=== PATIENT | male | born 1935 | race Caucasian/White ===

== ENCOUNTER → 2017-08-16 | Outpatient (CLI) | payer OTHER, MEDICARE | LOC: ULTRA 08:51 | DX: K80.20 Calculus of gallbladder without cholecystitis without obstruction (principal); N28.1 Cyst of kidney, acquired ==

== ENCOUNTER 2018-06-17 09:01 | Inpatient (IN) | payer OTHER, MEDICARE ==
[~2018-06-17] VITALS: Ht 182.9 cm; Wt 81.6 kg
[2018-06-17 09:22] VITALS: BP 150/76
[2018-06-17] MEDS ORDERED: MYRBETRIQ25 MG PO (09:34)
[2018-06-17] MEDS ORDERED: SINEMET 25-1001 EAC1 PO (09:34)
[2018-06-17] MEDS ORDERED: LISINOPRIL20 MG PO (09:35)
[2018-06-17] MEDS ORDERED: ACYCLOVIR 400400 MG PO (09:35)
[2018-06-17] MEDS ORDERED: GABAPENTIN600 M1 PO (09:37)
[2018-06-17 12:58] LABS: URINE BILIRUBIN NEGATIVE (Negative); URINE BLOOD TRACE (Negative); URINE CLARITY CLEAR; URINE COLOR YELLOW; URINE GLUCOSE-RANDOM* NEGATIVE (Negative); URINE KETONES NEGATIVE (Negative); URINE LEUKOCYTES NEGATIVE (Negative); URINE NITRITE NEGATIVE (Negative); URINE PROTEIN (DIPSTICK) NEGATIVE (Negative); URINE UROBILINOGEN 0.2 E.U./dl (0.2-1.0)
[2018-06-17 13:03] LABS: ABSOLUTE NEUTROPHILS 4.9 thou/uL (1.4-8.2); BASOPHILS 1.1 % (0.0-2.0); EOSINOPHILS 0.3 % (0.0-3.0); HEMATOCRIT 41.9 % (42.0-52.0); HEMOGLOBIN 14.2 gm/dL (14.0-18.0); LYMPHOCYTES 17.7 % (24.0-44.0); MCH 30.7 pg (26.0-34.0); MCHC 33.9 g/dL (28.0-37.0); MCV 90.7 fL (80.0-100.0); MONOCYTES 5.8 % (1.0-8.0); PLATELET COUNT 207 thou/uL (150-400); POLYS 75.1 % (36.0-66.0); RBC 4.62 mil/uL (4.50-6.00); RDW 14.8 % (10.5-14.5); WBC 6.6 thou/uL (4.0-11.0)
[2018-06-17 13:13] LABS: CALCIUM 9.4 mg/dL (8.5-10.1); CREATININE 0.9 mg/dL (0.7-1.3); POTASSIUM 3.9 mmol/L (3.5-5.1)
[2018-06-17 15:03] VITALS: BP 190/82
[2018-06-17 15:57] VITALS: BP 190/82
[2018-06-17 16:00] VITALS: BP 176/83
--- NOTE | 2018-06-17 18:24 | NUR ---
ADMISSION ASSESMENT COMPLETED. BP ELEVATED OTHERWISE STABLE. DENIES PAIN. NO NOTED SOA. NO NV. PT RESTING IN BED. FALL PREC. IN PLACE. BANDAGE ON LEFT KNEE LEFT HAND AND HEAD. NO CONCERNS VOICED AT THIS TIME. WILL CONT. TO MONITOR.
[2018-06-17 19:55] VITALS: BP 137/68
[2018-06-18 03:45] VITALS: BP 151/72
--- NOTE | 2018-06-18 04:56 | NUR ---
PT LYING IN BED. VOIDING PER URINAL. DENIES NEED FOR PAIN MEDICICATION. RESTING COMFORTABLY. NO NEEDS VOICED. CALL LIGHT WITHIN REACH. WILL CONTINUE TO PROVIDE FREQUENT OBSERVATION.
[2018-06-18 07:31] VITALS: BP 156/82
--- NOTE | 2018-06-18 08:14 | NUR ---
ASSESMENT COMPLETED. VSS. A/O. DENIES PAIN. NO NOTED SOA. NO NV. PT RESTING IN BED. DRESSINGS INTACT. PT ANTICIPATING TO DC HOME TODAY. WILL CONT. TO MONITOR.
[2018-06-18 11:52] VITALS: BP 156/82
--- NOTE | 2018-06-18 12:48 | NUR ---
DC INSTRUCTIONS GIVEN TO PT. PT VERBALIZED UNDERSTANDING. PT DCD HOME WITH SELF CARE./
--- NOTE | 2018-06-18 13:30 | EKG ---
[place] [address] [address] [facility] [place] [address] ELECTROCARDIOGRAM REPORT Name: MALLORY COOLEY Room #: 428-P 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 : 1935 Requested By: Beverly Chowdhury Order Number: [id number] MD: Osmani Royal Measurements Intervals [place] Rate: 76 P: -17 NE: 222 QRS: -12 QRSD: 102 T: 12 QT: 443 QTc: 499 Interpretive Statements Sinus rhythm Frequent supraventricular complexes Prolonged NE interval Borderline T abnormalities, anterior leads No previous ECG available for comparison Electronically Signed On 06-18-2018 13:30:44 CDT by Osmani Royal [email or web address] ��������������������������������������������� <ELECTRONICALLY SIGNED> ���������������������������������������� By: Osmani Royal MD, [facility] ��������������������������������������������� 06/18/18 1330 7 Osmani Royal MD, [facility] /EPI
== END 2018-06-18 12:45 | disposition home or self-care (01) | DRG 605 ==
LOC: ER 09:01 → EROBS 13:28 → 4E 15:35
PROVIDERS: Student in an Organized Health Care Education/Training Program; ADMIT Family Medicine
PROC: 0HQ0XZZ Repair Scalp Skin, External Approach (ICD-10-PCS; principal; 2018-06-17)
DX: S01.91XA Laceration without foreign body of unspecified part of head, initial encounter (principal); I10 Essential (primary) hypertension; G62.9 Polyneuropathy, unspecified; S61.411A Laceration without foreign body of right hand, initial encounter; S81.012A Laceration without foreign body, left knee, initial encounter; S51.812A Laceration without foreign body of left forearm, initial encounter; S80.12XA Contusion of left lower leg, initial encounter; W18.39XA Other fall on same level, initial encounter; Y93.89 Activity, other specified; Y92.89 Other specified places as the place of occurrence of the external cause; Y99.8 Other external cause status; Z23 Encounter for immunization; Z79.899 Other long term (current) drug therapy
CPT/HCPCS: 10183

== ENCOUNTER 2019-08-10 08:43 | Emergency (ER) | payer OTHER, MEDICARE ==
[~2019-08-10] VITALS: Ht 185.4 cm; Wt 89.8 kg
[~2019-08-10 08:43] MED LIST: ACYCLOVIR 400400 MG PO; GABAPENTIN600 M1 PO; LISINOPRIL20 MG PO; MYRBETRIQ25 MG PO; SINEMET 25-1001 EAC1 PO
[2019-08-10] MEDS ORDERED: TRAMADOL 50 MG50 MG PO (09:52)
[2019-08-10] MEDS ORDERED: MOBIC7.5 MG PO (09:52)
[2019-08-10 10:18] VITALS: BP 175/85
--- NOTE | 2019-08-11 11:49 | EKG ---
[facility] [place] [address] ELECTROCARDIOGRAM REPORT Name: MALLORY COOLEY [id number] Admission: 08/10/19 Attend Phys: Discharge: 08/10/19 Date of : 35 Report #: [id number] THIS REPORT FOR: cc: David Stout MD, Neal A. MD Couchonnal, Luis F. MD ~ THIS REPORT FOR: //name// 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1935 Requested By: Lan Granados Order Number: [id number] MD: Taiwo Moore Measurements Intervals [place] Rate: 76 P: 17 IN: 230 QRS: -34 QRSD: 106 T: 16 QT: 420 QTc: 473 Interpretive Statements Sinus rhythm Prolonged IN interval Left axis deviation Borderline repolarization abnormality Compared to ECG 06/17/2018 09:08:10 Left-axis deviation now present T-wave abnormality no longer present Electronically Signed On 08-11-2019 11:49:03 CDT by Taiwo Moore [email or web address] <ELECTRONICALLY SIGNED> By: Taiwo Moore MD 08/11/19 1149 0911 Taiwo Moore MD /EPI
== END 2019-08-10 11:07 | disposition home or self-care (01) ==
LOC: ER 08:43
DX: M75.52 Bursitis of left shoulder (principal); M13.812 Other specified arthritis, left shoulder; I10 Essential (primary) hypertension; G62.9 Polyneuropathy, unspecified; Z21 Asymptomatic human immunodeficiency virus [HIV] infection status; Z79.899 Other long term (current) drug therapy; Z87.891 Personal history of nicotine dependence

== ENCOUNTER 2019-08-18 11:30 | Inpatient (IN) | payer OTHER, MEDICARE ==
[~2019-08-18] VITALS: Ht 180.3 cm; Wt 86.2 kg
--- NOTE | ~2019-08-18 | EMS ---
[address] [address] EMS Patient Care Report Name: MALLORY COOLEY Room #: 445-P [facility] IN M.R.#: [id number] Admission: 08/18/19 Attend Phys: José Alan MD Discharge: Date of : 35 Report #: [id number] THIS REPORT FOR: //name// Report Transmitted: 08/18/2019 17:[address] [facility] MED-ACT Incident [id number] @ 08/18/2019 10:54 Incident Location [address] [place] [address] Patient MLALORY COOLEY Male, 84 Years 1935 Patient Address [address] [place] [address] Patient History Hypertension (HTN),Hyperlipidemia,Human Immunodeficiency Virus Disease (HIV/AIDS),Back Pain (Chronic),Back Surgery, Patient Allergies No known allergies, Patient Medications Acyclovir, Gabapentin, Lisinopril, Myrbetriq, Atorvastatin, Chief Complaint FALL Disposition Transported No Lights/[place] Reason Falls Transported To [facility] Narrative Upon arrival to the patient, the patient appeared to have no immediate life [address] [address] EMS Patient Care Report Name: MALLORY COOLEY Room #: 445-P ADM IN M.R.#: [id number] Admission: 08/18/19 Attend Phys: José Alan MD Discharge: Date of : 35 Report #: [id number] threats. The patient was noted to be CAOX4 with a GCS of 15. The patient was lying on his left side on the floor. The patient was noted to be have urine soaked clothing. The patient was in a scrub top and a diaper. The patient was with FD personnel and a third-libertarian RN from [employer]. The patient was noted by the RN to have low back pain. The patient laid himself upon the floor. It is unknown what time he did this. The patient???s room is an inner room with no window noted. The patient was stated that he fell into a seated position while in the shower. The patient wanted to go to [facility] for further care and evaluation. The patient was rolled onto a blanket. The patient was lifted and placed on the cot. The patient denied any pain in his neck. The patient was secured to the cot and moved to the ambulance. En route to the ER, vitals were monitored. The patient was placed on the pvc monitor. This revealed a reading of atrial fib. The patient was transported with no problems and no other complaints. Report was called to the ER via radio. The patient was left in room ER six with report given to RN. END OF REPORT. Initial Vitals @11:17P: 84,SpO2: 96,GA Suspected: false @11:16P: 78,R: 17,BP: 171/82,Pain: 4/10,GCS: 15,SpO2: 98,Revised Trauma: 12, Assessments @11:05MENTAL:Person Oriented,Time Oriented,Event Oriented,Place Oriented,SKIN:HEENT:Eyes: Right Pupil: 3-mm,Eyes: Left Pupil: 3-mm,Head/Face: No Abnormalities,Neck/Airway: No Abnormalities,LUNG SOUNDS:General: No Abnormalities,ABDOMEN:General: No Abnormalities,PELVIS//GI:Incontinence,EXTREMITIES:Left Arm: No Abnormalities,Right Arm: No Abnormalities,Left Leg: No Abnormalities,Right Leg: No Abnormalities,PULSE:Radial: 2+ Normal,NEURO:No Abnormalities, Impression Back Pain Procedures @11:103-Lead ECGResponse: UnchangedSucceeded Timeline 10:52,Call Received 10:52,Psap Call 10:54,Dispatched 10:55,En Route 11:01,On Scene [facility] [address] [place] [address] EMS Patient Care Report Name: MALLORY COOLEY Room #: 445-P ADM IN M.R.#: [id number] Admission: 08/18/19 Attend Phys: José Alan MD Discharge: Date of : 35 Report #: [id number] 11:04,At Patient 11:10,3-Lead ECG,Response: UnchangedSucceeded, 11:14,Depart Scene 11:16,BP: 171/82 M,PULSE: 78,RR: 17 R,SPO2: 98 Ox,ETCO2: ,BG: ,PAIN: 4,GCS: 15, 11:17,BP: / M,PULSE: 84,RR: R,SPO2: 96 Ox,ETCO2: ,BG: ,PAIN: ,GCS: , 11:23,At Destination 11:41,Call Closed Disclaimer v1.1 Copyright 2020 [employer] This EMS Care Summary contains data elements from the applicable legal record (which may be displayed differently). It is designed to provide pertinent information for the following purposes: continuity of care, clinical quality, and state data reporting. The complete legal record is available to ED staff and administrators of the receiving hospital in [employer] Patient Tracker. All data is provided "as is."
[~2019-08-18 11:30] MED LIST changes: +MOBIC7.5 MG PO; +TRAMADOL 50 MG50 MG PO
[2019-08-18 11:32] VITALS: BP 164/82
[2019-08-18 12:03] LABS: URINE BILIRUBIN NEGATIVE (Negative); URINE BLOOD TRACE (Negative); URINE CLARITY CLEAR; URINE COLOR YELLOW; URINE GLUCOSE-RANDOM* NEGATIVE (Negative); URINE KETONES 1+ (Negative); URINE LEUKOCYTES-REFLEX NEGATIVE (Negative); URINE NITRITE-REFLEX NEGATIVE (Negative); URINE PROTEIN (DIPSTICK) NEGATIVE (Negative); URINE SPECIFIC GRAVITY 1.015 (1.005-1.035)
[2019-08-18 13:03] LABS: ABSOLUTE NEUTROPHILS 5.5 thou/uL (1.4-8.2); BASOPHILS 0.5 % (0.0-2.0); EOSINOPHILS 0.6 % (0.0-3.0); HEMATOCRIT 43.9 % (42.0-52.0); HEMOGLOBIN 15.1 gm/dL (14.0-18.0); LYMPHOCYTES 13.9 % (24.0-44.0); MCH 31.4 pg (26.0-34.0); MCHC 34.4 g/dL (28.0-37.0); MCV 91.1 fL (80.0-100.0); PLATELET COUNT 244 thou/uL (150-400); RBC 4.82 mil/uL (4.50-6.00); RDW 14.1 % (10.5-14.5); WBC 7.2 thou/uL (4.0-11.0)
[2019-08-18 13:09] LABS: CALCIUM 9.2 mg/dL (8.5-10.1); CREATININE 0.9 mg/dL (0.7-1.3)
[2019-08-18 13:26] LABS: ALBUMIN 3.6 g/dL (3.4-5.0); DIRECT BILIRUBIN 0.4 mg/dL (<0.1-0.2); MAGNESIUM 1.4 mg/dL (1.8-2.4); TOTAL BILIRUBIN 1.6 mg/dL (0.2-1.0); TOTAL PROTEIN 6.6 g/dL (6.4-8.2)
[2019-08-18 17:15] VITALS: BP 157/92
[2019-08-18 17:40] VITALS: BP 165/83
[2019-08-18 18:00] VITALS: BP 160/86
--- NOTE | 2019-08-18 18:20 | NUR ---
PATIENT ARRIVED FROM ER AT 1755 TRANSFERRED TO BED WITH 3 ASSIST, PT ALERT XS 4. V.S 98.4 17 79 160/86 O2 SAT 98% RA. PT REGULAR DIET. WAS GIVEN DINNER IN ER. PT ACCOMPANIED BY DAUGHTER WHO LEFT TO GO HANDLE TURNER THINGS FOR PATIENT. PT WAS SEEN IN ER BY DR SWENSON. 82 YO MALE FROM [facility].
[2019-08-18 20:20] VITALS: BP 148/86
--- NOTE | 2019-08-19 03:59 | NUR ---
PT WAS ADMITTED TO THE UNIT FROM THE ER IN A STABLE CONDITION.PT C/O PAIN ON HIS LOWER BACK,RATED PAIN AT 10/10,MANAGED WITH MED.ADMISSION HX,EDUCATION AND ASSESSMENT COMPLETED.BLE EDEMA NOTED,ELEVATED WITH A PILLOW.SCD AND FALL PRECAUTIONS IN PLACE.CALL LIGHT WITHIN REACH.
[2019-08-19 05:00] VITALS: BP 141/109
[2019-08-19 05:56] LABS: HEMATOCRIT 39.6 % (42.0-52.0); HEMOGLOBIN 13.3 gm/dL (14.0-18.0); MCH 30.9 pg (26.0-34.0); MCHC 33.7 g/dL (28.0-37.0); MCV 91.7 fL (80.0-100.0); RBC 4.32 mil/uL (4.50-6.00); RDW 13.8 % (10.5-14.5); WBC 6.4 thou/uL (4.0-11.0)
[2019-08-19 06:04] LABS: CALCIUM 7.7 mg/dL (8.5-10.1); CREATININE 0.8 mg/dL (0.7-1.3); POTASSIUM 3.4 mmol/L (3.5-5.1)
[2019-08-19 08:33] VITALS: BP 152/99
[2019-08-19 18:26] VITALS: BP 168/86
--- NOTE | 2019-08-19 19:55 | NUR ---
PT CARE ASSUMED AT 0700. A&Ox4. PAIN MANAGED WELL WITH PAIN MEDICATION. PT VERY PLEASANT LAYING IN BED WAITING FOR FURTHER ORDERS TO BE IMPLEMENTED. MRI SCHEDULED FOR TOMORROW. CONSENT SIGNED AND FAXED. FALL PROTOCOL IN PLACE. PT USES URINAL. IV PATENT WITH NO REDNESS OR EDEMA. REPORT GIVEN TO ZENOBIA HARRELL.
[2019-08-19 20:07] VITALS: BP 150/97
[2019-08-20 05:09] VITALS: BP 128/67
[2019-08-20 07:45] VITALS: BP 151/78
--- NOTE | 2019-08-20 07:58 | NUR ---
PT VOIDING PER URINAL. LORTAB PROVIDING PAIN RELIEF. RESTING COMFORTABLY. NO NEEDS VOICED. CALL LIGHT WITHIN REACH. FREQUENT OBSERVATION.
--- NOTE | 2019-08-20 15:51 | NUR ---
PT ADMITTED RELATED TO FALL,BACK PAIN. CM REVIEWED CHART AND SPOKE WITH ARE TEAM. CM MET WITH PT AT BEDSIDE THIS DAY. PT APPERARED TO BE A&O X4. CM ROLE INTRODUCED. PT INDICATED HE LIVES ALONE IN AN INDEPENDENT LIVING APARTMENT AT THE [facility]. PT INDICATED NO STEPS. 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 PT INIDCATED THERE ARE ADDITIONAL SUPPORT SERVICES THAT HE HAD ELECETED AT THE [facility] CALL COMFORT CARE AND HE HAD BEEN USING THEM SAIL MAKER. PT INDICATED HE IS UNCERTAIN OF HIS ANTICPATED NEEDS AT THE TIME OF DC AT THIS TIME. CM TO FOLLOW INDICATED WITH DC PLANNING.
--- NOTE | 2019-08-20 17:58 | NUR ---
PT IS AOX4, VSS, PAIN IN BACK CONTROLLED WITH ORAL ANALGESIC. PT IS LAYING IN BED, TOLERATING DIET WELL. PT DOESN'T SHOW ANY DISTRESS AT THIS TIME. CALLS APPROPRATELY. WILL CONTINUE TO MONITOR.
[2019-08-20 18:49] VITALS: BP 125/61
--- NOTE | 2019-08-21 00:22 | NUR ---
ASSUMED PT CARE AT 1900.PT C/O PAIN TO HIS LOWER BACK,MANAGED WITH MED AND MUSCLE RELAXER.URINAL AT BEDSIDE.PT APPEARS TO BE SLEEPING ON HIS BED AT THIS TIME.FALL PRECAUTIONS IN PLACE,CALL LIGHT WITHIN REACH.REPORT TO JESS FREGOSO AT 2310.
--- NOTE | 2019-08-21 03:06 | NUR ---
ASSUMED PT CARE AT 2300. PT A&OX4. SLEEPING THROUGHOUT NIGHT, YELLS IN PAIN WHEN TURNING IN BED BUT DENIES PAIN MEDICATION. USES URINAL AT BEDSIDE. NO SIGNIFICANT CHANGES.
[2019-08-21 04:45] VITALS: BP 139/78
[2019-08-21 08:20] VITALS: BP 144/71
--- NOTE | 2019-08-21 11:29 | NUR ---
ASSUMED CARE AT 0700, SHIFT ASSESSMENT DONE, MEDS GIVEN, VSS. PT REPORTS SEVERE PAIN WITH ANY ADL ACTIVITY. PRN PAIN MED GIVEN WITH SOME RELIEF. OCCUPATIONAL THERAPHY DEFERRED D/T COMPLAINTS OF PAIN, AWIAING FOR PHYSICAL THERAPHY. WILL CONTINUE TO ASSESS AND ASSIST WITH ADLs NEEDED.
--- NOTE | 2019-08-21 12:56 | NUR ---
ASSUMED CARE AT 0700, SHIFT ASSSESMENT DONE, NPO THIS MORNING FOR POSSIBLE KYPHOPLASTY. DR PETERSEN SAW THE PT AND DECIDED NOT TO DO SURGERY AT THIS TIME. PT REFUSED OCCUPATIONAL THERAPHY, PHYSICAL THERAPHY TO COME AND WORK WITH PT. WILL CONTINUE TO ASSESS AND ASSIST WITH ADLs NEEDED.
--- NOTE | 2019-08-21 15:22 | NUR ---
ON-GOING ASSESSMENT: CM REVIEWED CHART AND SPOKE WITH PATIENT REGARDING POST ACUTE CARE. CM SPOKE WITH PT WHO REPORTS TO CALL HIS DAUGHTER. CM CONTACTED HIS DAUGHTER TO DISCUSS SNF AND SHE WANTED A REFERRAL SENT TO [facility]. LIASON STATES THAT SHE HAS A BED OPEN TOMORROW. CM WILL CONTINUE TO FOLLOW TO ASSIST NEEDED.
[2019-08-21 15:58] VITALS: BP 148/72
[2019-08-21 19:52] VITALS: BP 125/71
[2019-08-22 04:00] VITALS: BP 130/72
--- NOTE | 2019-08-22 06:02 | NUR ---
PT AOX4. PT REPORTS PAIN IN LOWER BACK. PT RECEIVING PRN PO NORCO Q6HR AND PRN IV MORPHINE Q4HR. PT REPORTS MUSCLE SPASMS, REFUSES PRN PO FLEXERIL Q8HR. PAIN NOTED TO WORSEN WITH MOVEMENT, ACTIVITY, AND TACTILE STIMULATION. PT REFUSING FREQUENT REPOSITIONING DUE TO PAIN. PROVIDED EDUCATION TO PT IN REGARDS TO PROMOTING SKIN INTEGRITY AND PREVENTING FURTHER SKIN BREAKDOWN. PT REPOSITIONED X1 TO LEFT SIDE, BARRIER CREAM APPLIED TO SAMMIE AREA AND BOTTOM, NO NEW WOUNDS OR REDNESS NOTED. PT REPORTS 'IF PT THINKS THEY ARE GOING TO GET ME UP, THEY BETTER THINK AGAIN'. PROVIDED REASSURANCE TO PT THAT PAIN MANAGEMENT AND ACHIEVING OPTIMAL FUNCTION ARE PRIORITIES OF CARE, PT VERBALIZED UNDERSTANDING AND RELUCTANCE TO MOVE DUE TO PAIN. PT COMMUNICATES WITH BRIGHT AFFECT AND PLEASANT MOOD. PT TOLERATING PO INTAKE WITHOUT ISSUE. PT ENCOURAGED TO NOTIFY STAFF FOR ALL NEEDS. CALL LIGHT WITHIN REACH, BED ALARM ON, BED IN LOWEST POSITION. WILL CONTINUE TO MONITOR.
[2019-08-22 07:33] VITALS: BP 108/76
--- NOTE | 2019-08-22 12:21 | NUR ---
WOUND CONSULT; ASSESSMENT OF THIS PATIENT TODAY REVEALED AN UNSTAGEABLE PRESSURE WOUND TO THE COCCYX WITH NECROSIS PRESENT. RECOMMENDATIONS; 1-CONSULT DR PORTILLO. 2-ZGUARD DAILY/PRN 3-Q2H TURNING 4--LOW AIR LOSS PUMP DISCUSSED WITH ZENOBIA
--- NOTE | 2019-08-22 14:49 | NUR ---
PT CARE ASSUMED AT 0700. A&Ox4. PT PAIN NOT WELL TOLERATED WITH PAIN MEDICATION. PT GOING TO PAIN CLINIC TO HAVE AN EPIDURAL. TOLERATED WELL AND BACK IN ROOM. PAIN LEVEL AT 3/10. VITALS STABLE. OT THIS AM. Q2 TURNS. DAUGHTER UPDATED ABOUT PROCEDURE AND FURTHER PLAN OF CARE. LOW AIRLOSS PUMP IN PLACE. URINAL. IV PATENT WITH NO REDNESS OR EDEMA, SALINE LOCKED. PT REFUSES SCD'S AND Q2 TURNS. [employer] INTERN AND RN WERE ABLE TO CONVINCE PT TO TURN A FEW TIMES THROUGHOUT THE DAY. FALL PROTOCOL IN PLACE. CALL LIGHT IN REACH. WILL CONTINUE TO MONITOR.
[2019-08-22 14:52] VITALS: BP 146/84
--- NOTE | 2019-08-22 16:14 | NUR ---
PT HAD EPIDURAL DONE BY PAIN MANAGEMENT THIS DAY. [facility] CAN ACCEPT PT ONCE MEDICALLY STABLE. CM TO FOLLOW INDICATED WITH DC PLANNING.
[2019-08-22 19:20] VITALS: BP 146/68
--- NOTE | 2019-08-23 04:04 | NUR ---
ASSUMED PT CARE AT 1900. PT A&OX4. PT REPORTS MINIMAL PAIN, IS VERY PLEASED WITH HOW HE FEELS FOLLOWING THE EPIDURAL. USES THE URINAL AT THE BEDSIDE. Q2 TURNS PROVIDED, ALTHOUGH PT IS NOT THRILLED ABOUT THEM. CURRENTLY RESTING IN BED WITH EYES CLOSED, WILL CONTINUE TO MONITOR.
[2019-08-23 04:38] VITALS: BP 155/69
[2019-08-23 07:50] VITALS: BP 126/64
[2019-08-23 09:13] VITALS: BP 126/64
[2019-08-23] MEDS ORDERED: CYCLOBENZAPRINE5 MG PO (09:31)
[2019-08-23] MEDS ORDERED: HYDROCODON-ACE1 EAC7 PO (09:31)
--- NOTE | 2019-08-23 12:13 | NUR ---
PT CARE ASSUMED AT 0700. A&Ox4. PAIN BEING MANAGED WELL WITH PAIN MEDICATION. IV REMOVED. PT DISCHARGING TO REHAB FACILITY TODAY. DAUGHTER CALLED AND UPDATED. DAUGHTER CAME TO THE HOSPITAL UNTIL PT LEFT. DISCHARGE COMPLEETED. MEDICATIONS PICKED UP FROM PHARMACY AND RETURNED TO DAUGHTER TO TAKE HOME. PT STILL REFUSING TO WORK WITH PT. WASHED UP WITH OT. SMALL WOUND ON SACRUM PICTURE ON CHART. PT REFUSING TO DO HIS Q2 TURNS AND SCD'S. FALL PROTOCOL IN PLACE. WILL CONTINUE TO MONITOR. REPORT CALLED.
--- NOTE | 2019-08-23 14:14 | NUR ---
PT DISCHARGING TODAY TO [facility] FOR SKILLED STAY FAXED DC ORDERS/SUMMARY TO FACILITY RECEIVED CONFIRMATION AND TRANSPORT ARRANGED BY TIFFANIE FOR 1200 TODAY. FAMILY NOTIFIED AND UNIT NOTIFIED. CHART COPY PER US RN TO CALL REPORT TO [phone].
--- NOTE | 2019-08-27 08:00 | HC ---
[facility] [place] [place] [address] CONSULTATION Name: MALLORY COOLEY Room #: 445-P [facility] IN M.R.#: [id number] Admission: 08/18/19 Attend Phys: David Stout MD Discharge: 08/23/19 Date of : 35 Report #: [id number] THIS REPORT FOR: cc: David Stout MD, Neal A. MD Althoff, Jeffrey R. MD ~ CC: David Stout DATE OF SERVICE: 08/23/2019 CHIEF COMPLAINT: Sacral pressure ulceration. HISTORY OF PRESENT ILLNESS: This is an 84-year-old male patient who presented to the Emergency Department by ambulance after having significant back pain. He had fallen in the shower in the morning. Was laid on the ground for about 9 hours, was helped up, but due to severe pain and immobility was admitted. PAST MEDICAL HISTORY: Positive for history of HIV positivity, neuropathy, hypertension. MEDICATIONS: Carbidopa/levodopa, Myrbetriq, Zovirax, Zestril, gabapentin. ALLERGIES: No known drug allergies. SOCIAL HISTORY: Negative for drug use. Positive for occasional alcohol use. Negative for tobacco use. FAMILY HISTORY: Noncontributory. ALLERGIES: None. REVIEW OF SYSTEMS: CONSTITUTIONAL: The patient denies fever, chills, or weight loss. NEUROLOGICAL: The patient has low back pain. Denies focal weakness, numbness or tingling. EYES: The patient denies visual changes, redness, or drainage. ENT: The patient denies earache, nasal drainage, sore throat. CARDIOVASCULAR: The patient denies chest pain or palpitations or diaphoresis. PULMONARY: The patient denies cough or shortness of breath. GASTROINTESTINAL: The patient denies nausea, vomiting, diarrhea or abdominal pain. ORTHOPEDIC: The patient complains of pain in his back. Denies pain or swelling of the extremities. Other systems in a 14-point review of systems are negative. PHYSICAL EXAMINATION: [address] [address] CONSULTATION Name: MALLORY COOLEY Room #: 445-P [facility] IN [facility].#: [id number] Admission: 08/18/19 Attend Phys: David Stout MD Discharge: 08/23/19 Date of : 35 Report #: [id number] VITAL SIGNS: At this time include temperature 36.7, pulse 47, respiratory rate 18, blood pressure 126/64. GENERAL: This is a somewhat chronically ill-appearing male patient who appears to be in minimal distress. HEENT: Head normocephalic. Nose and throat clear. NECK: Supple. LUNGS: Clear. HEART: Regular rhythm. ABDOMEN: Soft. Bowel sounds present. BACK: Shows a small puncture site from an epidural injection. He has a shallow stage 3 pressure ulcer to the sacral region. It is relatively clean with some granulation tissue, does not appear to be overtly infected. NEUROLOGIC: The patient is alert and oriented and appropriate. LABORATORY STUDIES: Include white blood cell count 6.4 with a hemoglobin 13.3, hematocrit 39.6. Sodium 138, potassium 3.4, chloride 104, CO2 of 28, BUN 15, glucose 92, calcium is 7.7. Albumin is 3.6. CLINICAL IMPRESSION: 1. Stage 3 sacral pressure ulceration. 2. Spinal stenosis with intractable pain, now status post epidural. 3. Hypertension. 4. Human immunodeficiency virus. RECOMMENDATIONS: At this point in time, recommend low air loss mattress, q. 2 hour turning and repositioning. Recommend zinc oxide cream and bordered foam daily. He will need aggressive nutritional support to help with mobility, continuation of current medications, occupational and physical therapy as appropriate. I appreciate being asked to see the patient in consultation. <ELECTRONICALLY SIGNED> By: Erik Al MD 08/27/19 0800 [id number] [id number] Erik Al MD /nt
== END 2019-08-23 15:30 | DRG 551 ==
LOC: ER 11:30 → 4S 17:50
PROVIDERS: Emergency Medicine; Hospitalist; ADMIT Family Medicine; ATTEND Family Medicine
DX: S22.089A Unspecified fracture of T11-T12 vertebra, initial encounter for closed fracture (principal); L89.153 Pressure ulcer of sacral region, stage 3; I10 Essential (primary) hypertension; M48.061 Spinal stenosis, lumbar region without neurogenic claudication; G62.9 Polyneuropathy, unspecified; G20 Parkinson's disease; M47.819 Spondylosis without myelopathy or radiculopathy, site unspecified; Z21 Asymptomatic human immunodeficiency virus [HIV] infection status; W19.XXXA Unspecified fall, initial encounter; Y93.89 Activity, other specified; Y92.89 Other specified places as the place of occurrence of the external cause; Y99.8 Other external cause status; Z79.899 Other long term (current) drug therapy
CPT/HCPCS: 10195